=== PATIENT | male | born 1950 | race Caucasian/White ===

== ENCOUNTER 2018-10-31 13:22 | Inpatient (IN) | payer OTHER ==
[2018-10-31 16:27] VITALS: BMI 29.7
--- NOTE | 2018-10-31 18:00 | HP ---
COWS - Scale Resting Pulse: 1= [place] 81-100 Sweatin= Chills/Flushing Restless Observation: 3= Extraneous Movement Pupil Size: 1= Pupils >than Normal Bone or Joint Aches: 2= Severe Diffuse Aches Runny Nose/ Eye Tearin= Nasal Congestion GI Upset > 30mins: 1= Stomach Cramp Tremor Observation: 1= Tremor [place], Not Seen Yawning Observation: 1= 1-2x During Session Anxiety or Irritability: 1=Feels Anxious/Irritable Goose Flesh Skin: 0=Smooth Skin COWS Score: 13 CIWA Score - Admission Criteria OASAS Guidelines: Admission for Medically Managed Detox: Requires at least one of the followin. CIWA greater than 12 2. Seizures within the past 24 hours 3. Delirium tremens within the past 24 hours 4. Hallucinations within the past 24 hours 5. Acute intervention needed for co occurring medical disorder 6. Acute intervention needed for co occurring psychiatric disorder 7. Severe withdrawal that cannot be handled at a lower level of care (continued vomiting, continued diarrhea, abnormal vital signs) requiring intravenous medication and/or fluids 8. Admission ROS S - HPI Chief Complaint: detox from heroin, MJ 68 yo with h/o cancer, says he was getting pain medications- oxycontin (60mg/day ) and this was stopped after he refused back operation, and he started with inhaling heroin about 6 months ago because gabapentin did not help with pain. Pt [facility] the [place] and was referred here for detox. heroin- $10/day, 1- 2 bags day- says he uses this all day long to prevent withdrawal Sx MJ- "a lot" PMH- kidney cancer- had partial nephrectomy, diabetes, asthma, chronic sinus, anxiety, panic attacks. PCP: Dr. Baker at [facility]. DUR- xanax #90, 1mg 6/6- d/w pt that we do will not be able to give him xanax- pt understood and agreed to prn Klonopin dosing Utox: THC, met, opi, BZO Allergies/Adverse Reactions: Allergies Allergy/AdvReac Type Severity Reaction Status Date / Time tetracycline Allergy Severe Verified 10/31/18 16:07 cefaclor [From Ceclor] Allergy Itching Verified 10/31/18 16:08 ciprofloxacin [From Cipro] Allergy Rash Verified 10/31/18 16:08 - Ebola screening Have you traveled outside of the country in the last 21 days: No Have you had contact with anyone from an Ebola affected area: No Do you have a fever: No - Review of Systems Constitutional: No Symptoms Reported, Other (says he has pain all over body from cancer) EENT: reports: No Symptoms Reported Respiratory: reports: Cough Cardiac: reports: Chest Pain GI: reports: Other (says he has pain everyday all over body from cancer) : reports: No Symptoms Reported Musculoskeletal: reports: No Symptoms Reported Neuro: reports: No Symptoms reported Endocrine: reports: No Symptoms Reported Hematology: reports: No Symptoms Reported Patient History - Patient Medical History Hx Asthma: Yes Hx Hypertension: Yes Hx Diabetes: Yes (diet controlled) Hx Thyroid Disease: Yes Other Medical History: cancer all over body - Patient Surgical History Hx Genitourinary Surgery: Yes (nephrectomy for cancer) - PPD History Documented Results: Positive w/o proof Implanted On Prior [facility] Admission?: No - Smoking Cessation Smoking history: Never smoked - Substances abused Heroin Substance route: Inhalation Frequency: Daily Amount used: 1 BAG Age of first use: 68 Date of last use: 10/30/18 Marijuana/Hashish Frequency: Daily Amount used: 6 JOINTS A DAY Age of first use: 23 Date of last use: 10/30/18 Admission Physical Exam S - Vital Signs Vital Signs: Vital Signs - 24 hr 10/31/18 10/31/18 16:20 17:34 Temperature 97.7 F 97.7 F Pulse Rate 60 60 Respiratory 16 16 Rate Blood Pressure 131/75 131/75 - Physical General Appearance: Yes: Mild Distress, Irritable HEENTM: Yes: Within Normal Limits, Other (dentures) Respiratory: Yes: Within Normal Limits, Lungs Clear Neck: Yes: Within Normal Limits, No masses,lesions,Nodules Cardiology: Yes: Within Normal Limits, Regular Rhythm, Regular Rate Abdominal: Yes: Soft, Tenderness (all over abdomen, no rebound, pt states this is chronic pain for several years- 15,), Other (with midline abdominal hernia a ) Musculoskeletal: Yes: Within Normal Limits Extremities: Yes: Within Normal Limits, Other Neurological: Yes: Within Normal Limits Integumentary: Yes: Within Normal Limits Lymphatic: Yes: Within Normal Limits - Diagnostic (1) Heroin use disorder, mild, abuse Current Visit: Yes Status: Acute (2) Cannabis use disorder, mild, abuse Current Visit: Yes Status: Acute (3) Diabetes Current Visit: Yes Status: Acute (4) Hypertension Current Visit: Yes Status: Acute (5) Cancer Current Visit: Yes Status: Acute (6) Anxiety Current Visit: Yes Status: Acute Breathalyzer - Breathalyzer Breathalyzer: 0 Urine Drug Screen - Test Device Lot number: [id number] Expiration date: 06/30/20 - Control Is test valid?: Yes - Results Drug screen NEGATIVE: No Urine drug screen results: THC-Marijuana, MET-Methamphetamine, MOP-Opiates, BZO- Benzodiazepines Inpatient Rehab Admission - Rehab Decision to Admit Inpatient rehab admission?: No
[2018-10-31] MEDS ORDERED: IBUPROFEN 400 MG TABLET (FP) PO PRN (18:13)
[2018-10-31] MEDS ORDERED: ACETAMINOPHEN 325 MG TABLET (FP) PO PRN ×2 (18:13)
[2018-10-31] MEDS ORDERED: MELATONIN 5 MG TABLETS PO PRN (18:13)
[2018-10-31] MEDS ORDERED: MENTHOL/PHENOL 1 EACH UD MM PRN (18:13)
[2018-10-31] MEDS ORDERED: BISMUTH SUBSALICYLATE 524 MG/30 ML UD PO PRN (18:13)
[2018-10-31] MEDS ORDERED: MAGNESIUM CITRATE 300 ML BOTTLE PO PRN (18:13)
[2018-10-31] MEDS ORDERED: hydrOXYzine PAMOATE 25 MG CAPSULE (FP) PO PRN (18:13)
[2018-10-31] MEDS ORDERED: METHOCARBAMOL 500 MG TABLET PO PRN (18:13)
[2018-10-31] MEDS ORDERED: MAG HYDROX/AL HYDROX/SIMETH 30 ML UNIT-DOSE CUP PO PRN (18:13)
[2018-10-31] MEDS ORDERED: MAGNESIUM HYDROX 2400MG/30ML ORAL SUSPENSION 30 ML CUP PO PRN (18:13)
[2018-10-31] MEDS ORDERED: METHADONE HCL 10 MG TABLET (FOR DETOX USE ONLY) PO ONE (18:32)
[2018-10-31] MEDS ORDERED: NALOXONE HCL 0.4 MG/ML VIAL IVPUSH PRN (18:32)
[2018-10-31] MEDS ORDERED: ALBUTEROL SO4 8 GM HFA INHALER IH PRN (18:33)
[2018-10-31] MEDS: cloNIDine HCL 0.1 MG TABLET PO PRN (22:28)
[2018-10-31] MEDS: THIAMINE HCL 100 MG TABLET (FP) PO SCH (22:28)
[2018-10-31] MEDS: clonazePAM 0.5 MG TABLET PO PRN (22:28)
--- NOTE | 2018-11-01 09:46 | CONSULT ---
[facility] Psychiatric Consult - Data Date of interview: 11/01/18 Admission source: [facility] Identifying data: Mr Sosa is a 68 years old male, father of at least 4 children, retired from osher at [employer], domiciled seeking detox treatment opioid and cannabis. Substance Abuse History: Reports history of heroin and marijuana use. Refer to addiction counselor's summary for further information Medical History: Significant for bronchial asthma, hypertension, type 2 diabetes mellitus, hypothyroidism, PPD+, kidney cancer with metastasis to abdomen, history of partial nephrectomy. Psychiatric History: Reports that he has been receiving psychiatric treatment for over 30 years. Claims that he was diagnosed with depression, anxiety, bipolar. He said that over the years, he received outpatient psychiatric treatment at [facility] and [facility] in [facility]. For the past 2 years, he has beeing seeing a private psychiatrist at [facility]. He is currently prescribed Cymbalta 60 mg/day & 30 mg/pm and Xanax 1 mg/ tid. Denies previous psychiatric hospitalization or suicidal attempt. At present , denies experiencing psychotic, manic symptoms, S/H ideations. However, reports feeling depressed, irritable and sleeping poorly Physical/Sexual Abuse/Trauma History: Denies history of emotional, physical or sexual abuse as well as DV relationship. No service Additional Comment: Reports history of multiple previous arrests including 2 felony convictions. Denies being on parole/probation at present Mental Status Exam - Mental Status Exam Cognitive Function: Fair Patient Appearance: Disheveled Mood: Depressed, Irritable Affect: Appropriate Patient Behavior: Cooperative Speech Pattern: Clear Voice Loudness: Normal Thought Process: Intact, Goal Oriented Hallucinations: Denies Suicidal Ideation: Denies Homicidal Ideation: Denies Insight/Judgement: Poor Sleep: Poorly Appetite: Good Muscle strength/Tone: Normal Gait/Station: Normal Psychiatric Findings - Problem List ([place] 1, 2,3) (1) MDD (major depressive disorder) Current Visit: Yes Status: Chronic (2) Bipolar II disorder Current Visit: Yes Status: Ruled-out (3) Opioid dependence, uncomplicated Current Visit: Yes Status: Acute (4) Cannabis dependence Current Visit: Yes Status: Acute (5) Hypertension Current Visit: Yes Status: Chronic (6) Bronchial asthma Current Visit: Yes Status: Chronic (7) Type 2 diabetes mellitus Current Visit: Yes Status: Chronic (8) Kidney cancer, primary, with metastasis from kidney to other site Current Visit: Yes Status: Chronic - Initial Treatment Plan Initial Treatment Plan: 1) Continue Cymbalta 60 mg/day and 30 mg/pm. 2) Continue inpatient detoxification
[2018-11-01 09:57] LABS: HEMATOCRIT 44.4 % (35.4-49); HEMOGLOBIN 14.6 GM/dL (11.7-16.9); MCH 30.8 pg (25.7-33.7); MEAN CELL VOLUME 93.6 fl (80-96); MEAN PLT VOLUME 9.6 fl (7.5-11.1); PLATELET COUNT 252 K/MM3 (134-434); RBC 4.75 M/mm3 (4.00-5.60); RDW 16.6 % (11.9-15.9); WHITE BLOOD COUNT 12.9 K/mm3 (4.0-10.0)
[2018-11-01] MEDS ORDERED: METHADONE HCL 5 MG TABLET (FOR DETOX USE ONLY) PO ONE (10:00)
[2018-11-01 10:02] LABS: ALBUMIN 3.7 g/dl (3.4-5.0); BILIRUBIN,TOTAL 0.4 mg/dL (0.2-1); BLOOD UREA NITROGEN 10.2 mg/dL (7-18); CALCIUM 9.1 mg/dL (8.5-10.1); CREATININE 0.8 mg/dL (0.55-1.3); POTASSIUM 3.9 mmol/L (3.5-5.1); TOT PROT 7.6 g/dl (6.4-8.2)
[2018-11-01] MEDS: LOSARTAN POTASSIUM 50 MG TABLET (FP) PO SCH (10:23)
[2018-11-01] MEDS: PRENATAL VITAMINS W/ FOLIC ACID TABLET (FP) PO SCH (10:23)
[2018-11-01] MEDS: clonazePAM 0.5 MG TABLET PO PRN (10:28)
--- NOTE | 2018-11-01 10:56 | PN ---
S COWS - Scale Resting Pulse: 0= [place] 80 or Below Sweatin= Chills/Flushing Restless Observation: 1= Difficult to Sit Still Pupil Size: 1= Pupils >than Normal Bone or Joint Aches: 2= Severe Diffuse Aches Runny Nose/ Eye Tearin= Nasal Congestion GI Upset > 30mins: 1= Stomach Cramp Tremor Observation of Outstretched Hands: 1= Tremor [place], Not Seen Yawning Observation: 1= 1-2x During Session Anxiety or Irritability: 2=Irritable/Anxious Goose Flesh Skin: 0=Smooth Skin COWS Score: 11 S Progress Note (SOAP) Subjective: alert,irritable,anxious,interrupted sleep,pain in the back and body Objective: 11/01/18 10:53 Vital Signs Temperature 97.7 F 11/01/18 09:18 Pulse Rate 50 L 11/01/18 09:18 Respiratory Rate 20 11/01/18 09:18 Blood Pressure 144/70 11/01/18 09:18 O2 Sat by Pulse Oximetry (%) Laboratory Last Values WBC 12.9 K/mm3 (4.0-10.0) H 11/01/18 06:30 RBC 4.75 M/mm3 (4.00-5.60) 11/01/18 06:30 Hgb 14.6 GM/dL (11.7-16.9) 11/01/18 06:30 Hct 44.4 % (35.4-49) 11/01/18 06:30 MCV 93.6 fl (80-96) 11/01/18 06:30 MCH 30.8 pg (25.7-33.7) 11/01/18 06:30 MCHC 33.0 g/dl (32.0-35.9) 11/01/18 06:30 RDW 16.6 % (11.9-15.9) H 11/01/18 06:30 Plt Count 252 K/MM3 (134-434) 11/01/18 06:30 MPV 9.6 fl (7.5-11.1) 11/01/18 06:30 Sodium 142 mmol/L (136-145) 11/01/18 06:30 Potassium 3.9 mmol/L (3.5-5.1) 11/01/18 06:30 Chloride 106 mmol/L (98-107) 11/01/18 06:30 Carbon Dioxide 29 mmol/L (21-32) 11/01/18 06:30 Anion Gap 7 MMOL/L (8-16) L 11/01/18 06:30 BUN 10.2 mg/dL (7-18) 11/01/18 06:30 Creatinine 0.8 mg/dL (0.55-1.3) 11/01/18 06:30 Est GFR (CKD-EPI)AfAm 106.38 11/01/18 06:30 Est GFR (CKD-EPI)NonAf 91.79 11/01/18 06:30 Random Glucose 131 mg/dL (74-106) H 11/01/18 06:30 Calcium 9.1 mg/dL (8.5-10.1) 11/01/18 06:30 Total Bilirubin 0.4 mg/dL (0.2-1) 11/01/18 06:30 AST 13 U/L (15-37) L 11/01/18 06:30 ALT 21 U/L (13-61) 11/01/18 06:30 Alkaline Phosphatase 108 U/L (45-117) 11/01/18 06:30 Total Protein 7.6 g/dl (6.4-8.2) 11/01/18 06:30 Albumin 3.7 g/dl (3.4-5.0) 11/01/18 06:30 11/01/18 10:54 rpr pending Assessment: 11/01/18 10:55 withdrawal symptom Plan: continue detox,wbc 12.900,glucose 131,encourage oral fluid,repeat cbc in am,bgm monitoring
[2018-11-01] MEDS: DULoxetine HCL 60 MG CAPSULE.DR PO SCH (11:05)
[2018-11-01] MEDS ORDERED: DULoxetine HCL 30 MG CAPSULE.DR PO SCH (17:00)
[2018-11-01] MEDS: cloNIDine HCL 0.1 MG TABLET PO PRN (17:58)
[2018-11-01] MEDS: THIAMINE HCL 100 MG TABLET (FP) PO SCH (22:14)
[2018-11-02] MEDS: clonazePAM 0.5 MG TABLET PO PRN (06:26)
[2018-11-02] MEDS ORDERED: METHADONE HCL 10 MG TABLET (FOR DETOX USE ONLY) PO ONE (10:00)
[2018-11-02 10:12] LABS: HEMATOCRIT 42.7 % (35.4-49); HEMOGLOBIN 14.3 GM/dL (11.7-16.9); MCH 31.1 pg (25.7-33.7); MCHC 33.4 g/dl (32.0-35.9); MEAN CELL VOLUME 93.2 fl (80-96); MEAN PLT VOLUME 9.2 fl (7.5-11.1); PLATELET COUNT 245 K/MM3 (134-434); RBC 4.58 M/mm3 (4.00-5.60); RDW 16.4 % (11.9-15.9); WHITE BLOOD COUNT 10.7 K/mm3 (4.0-10.0)
[2018-11-02] MEDS: DULoxetine HCL 60 MG CAPSULE.DR PO SCH (10:13)
[2018-11-02] MEDS: LOSARTAN POTASSIUM 50 MG TABLET (FP) PO SCH (10:13)
[2018-11-02] MEDS: PRENATAL VITAMINS W/ FOLIC ACID TABLET (FP) PO SCH (10:13)
--- NOTE | 2018-11-02 10:38 | PN ---
[facility] COWS - Scale Resting Pulse: 0= [place] 80 or Below Sweatin= Chills/Flushing Restless Observation: 0= Sits Still Pupil Size: 0= Normal to Room Light Bone or Joint Aches: 4=Acute Joint/Muscle Pain Runny Nose/ Eye Tearin= Nasal Congestion GI Upset > 30mins: 0= None Tremor Observation of Outstretched Hands: 1= Tremor [employer], Not Seen Yawning Observation: 1= 1-2x During Session Anxiety or Irritability: 2=Irritable/Anxious Goose Flesh Skin: 0=Smooth Skin COWS Score: 10 BHS Progress Note (SOAP) Subjective: ANXIETY, GENERALIZED PAIN. PT REPORTS HE IS ON SYNTHROID FOR HX HYPOTHYROIDISM, TIZANIDINE 4 MG 3X A DAY FOR MUSCLE SPASMS, SINGULAIR FOR ASTHMA AND REPORTS SOB ON/OF. ALSO REPORTS HE HAS A HX OF "HEAD SPINNING" AND WAS GIVEN ATIVERT FOR IT. REQUESTING TO GET BACK ON HIS MEDS BECAUSE "I BROUGHT MY MEDICINES". PT WAS ADMITTED ON 10/31/18 TO DETOX. CHECKED ON PT'S OUTSIDE PHARMACY -[facility] WITH LAST POST ON 10/19/18. TIZANIDINE 4 MG PO TID LEVOTHYROXIN 150 MCG PO DAILY LOSARTAN 100 MG PO DAILY MONTELUKAST 10 MG PO DAILY TAMSULOSIN 0.4 MG PO DAILY VALACYCLOVIR 1 GM PO DAILY Objective: 11/02/18 10:38 Vital Signs 11/02/18 11/02/18 11/02/18 03:30 07:39 09:23 Temperature 97.9 F 98.9 F Pulse Rate 54 L 75 Respiratory 18 18 19 Rate Blood Pressure 150/81 161/91 Laboratory Tests 11/01/18 11/01/18 11/01/18 06:30 06:30 06:30 WBC 12.9 H RBC 4.75 Hgb 14.6 Hct 44.4 MCV 93.6 MCH 30.8 MCHC 33.0 RDW 16.6 H Plt Count 252 MPV 9.6 Sodium 142 Potassium 3.9 Chloride 106 Carbon Dioxide 29 Anion Gap 7 L BUN 10.2 Creatinine 0.8 Est GFR (CKD-EPI)AfAm 106.38 Est GFR (CKD-EPI)NonAf 91.79 POC Glucometer Random Glucose 131 H Calcium 9.1 Total Bilirubin 0.4 AST 13 L ALT 21 Alkaline Phosphatase 108 Total Protein 7.6 Albumin 3.7 RPR Titer Nonreactive 11/02/18 11/02/18 06:24 07:50 WBC 10.7 H RBC 4.58 Hgb 14.3 Hct 42.7 MCV 93.2 MCH 31.1 MCHC 33.4 RDW 16.4 H Plt Count 245 MPV 9.2 Sodium Potassium Chloride Carbon Dioxide Anion Gap BUN Creatinine Est GFR (CKD-EPI)AfAm Est GFR (CKD-EPI)NonAf POC Glucometer 116 Random Glucose Calcium Total Bilirubin AST ALT Alkaline Phosphatase Total Protein Albumin RPR Titer Assessment: 11/02/18 10:50 WITHDRAWAL SX Plan: CONTINUE DETOX NURSE TO ASSIST PT OBTAIN MEDS FROM [facility]. THEN CONFIRM HOME MEDS WITH PATIENT TAKE HOME MEDS TO PHARMACY FOR VERIFICATION AND CLEARANCE. REORDER MEDS DEEM APPROPRIATE.
[2018-11-02 13:06] VITALS: BP 177/78; PULSE 60; TEMP 97
--- NOTE | 2018-11-02 15:37 | DS ---
[facility] Detox Discharge Summary Admission Date: 10/31/18 Discharge Date: 11/02/18 - History Present History: Cannabis Dependence, Opioid Dependence Additional Comments: PT DECLINED TO CONTINUE WITH TREATMENT STATING HE IS GOING BACK TO WORK. ALL EFFORTS TO ENCOURAGE PT TO STAY FAILED. ALERT O X 3. DENIES S/H/I. PT REPORTS HE HAS A PRIMARY CARE PROVIDER, DR. SINGH AND PT HAS BEEN ENCOURAGED TO FOLLOW UP WITH MEDICAL MANAGEMENT. Pertinent Past History: PLEASE SEE DX BELOW - Physical Exam Results Vital Signs: Vital Signs Temperature 97.0 F L 11/02/18 13:00 Pulse Rate 60 11/02/18 13:00 Respiratory Rate 20 11/02/18 13:00 Blood Pressure 177/78 H 11/02/18 13:00 O2 Sat by Pulse Oximetry (%) Pertinent Admission Physical Exam Findings: WITHDRAWAL SX Laboratory Tests 11/01/18 11/01/18 11/01/18 06:30 06:30 06:30 WBC 12.9 H RBC 4.75 Hgb 14.6 Hct 44.4 MCV 93.6 MCH 30.8 MCHC 33.0 RDW 16.6 H Plt Count 252 MPV 9.6 Sodium 142 Potassium 3.9 Chloride 106 Carbon Dioxide 29 Anion Gap 7 L BUN 10.2 Creatinine 0.8 Est GFR (CKD-EPI)AfAm 106.38 Est GFR (CKD-EPI)NonAf 91.79 POC Glucometer Random Glucose 131 H Calcium 9.1 Total Bilirubin 0.4 AST 13 L ALT 21 Alkaline Phosphatase 108 Total Protein 7.6 Albumin 3.7 RPR Titer Nonreactive 11/02/18 11/02/18 06:24 07:50 WBC 10.7 H RBC 4.58 Hgb 14.3 Hct 42.7 MCV 93.2 MCH 31.1 MCHC 33.4 RDW 16.4 H Plt Count 245 MPV 9.2 Sodium Potassium Chloride Carbon Dioxide Anion Gap BUN Creatinine Est GFR (CKD-EPI)AfAm Est GFR (CKD-EPI)NonAf POC Glucometer 116 Random Glucose Calcium Total Bilirubin AST ALT Alkaline Phosphatase Total Protein Albumin RPR Titer - Treatment Hospital Course: Discharged Condition Good - Medication Discharge Medications: Ambulatory Orders Cymbalta BID 10/31/18 Losartan Potassium 10/31/18 Ventolin HFA Inhaler - 10/31/18 Xanax TID 10/31/18 - Diagnosis (1) Cannabis dependence Status: Acute (2) Bronchial asthma Status: Chronic Qualifiers: Asthma severity: mild Asthma persistence: unspecified Asthma complication type: unspecified Qualified Code(s): J45.909 - Unspecified asthma , uncomplicated (3) Hypertension Status: Chronic Qualifiers: Hypertension type: essential hypertension Qualified Code(s): I10 - Essential (primary) hypertension (4) Type 2 diabetes mellitus Status: Chronic (5) Opioid dependence, uncomplicated Status: Chronic (6) BPH (benign prostatic hyperplasia) Status: Chronic Qualifiers: Lower urinary tract symptom detail: unspecified (7) Hypothyroidism Status: Chronic Qualifiers: Hypothyroidism type: unspecified Qualified Code(s): E03.9 - Hypothyroidism , unspecified - AMA Did Patient Leave Against Medical Advice: Yes (AMA)
[2018-11-03] MEDS ORDERED: METHADONE HCL 5 MG TABLET (FOR DETOX USE ONLY) PO ONE (06:00)
--- NOTE | 2018-11-03 10:41 | EKG ---
Test Reason : Blood Pressure : / mmHG Vent. Rate : 050 BPM Atrial Rate : 050 BPM P-R Int : 174 ms QRS Dur : 094 ms QT Int : 448 ms P-R-T Axes : 048 -18 016 degrees QTc Int : 408 ms SINUS BRADYCARDIA LEFTWARD AXIS MINIMAL VOLTAGE CRITERIA FOR LVH, MAY BE NORMAL VARIANT NO PREVIOUS ECGS AVAILABLE Confirmed by ESTELLE MENEZES MD ([id number]) on 11/03/2018 10:40:58 AM Referred By: Confirmed By:ESTELLE MENEZES MD
== END 2018-11-02 13:03 | disposition left against medical advice (07) | DRG 894 ==
LOC: YASAS 13:22 → Y6N 18:20
PROVIDERS: ADMIT Surgery; ATTEND Surgery
PROC: HZ2ZZZZ Detoxification Services for Substance Abuse Treatment (ICD-10-PCS; principal; 2018-10-31)
DX: F11.23 Opioid dependence with withdrawal (principal); F13.20 Sedative, hypnotic or anxiolytic dependence, uncomplicated; F31.81 Bipolar II disorder; C64.9 Malignant neoplasm of unspecified kidney, except renal pelvis; C79.89 Secondary malignant neoplasm of other specified sites; F12.20 Cannabis dependence, uncomplicated; F32.9 Major depressive disorder, single episode, unspecified; F41.8 Other specified anxiety disorders; F41.0 Panic disorder [episodic paroxysmal anxiety]; I10 Essential (primary) hypertension; E11.9 Type 2 diabetes mellitus without complications; J45.909 Unspecified asthma, uncomplicated; N40.0 Benign prostatic hyperplasia without lower urinary tract symptoms; Z90.5 Acquired absence of kidney
CPT/HCPCS: 36415; 80053; 82962; 85027; 86593; 93005; 93010; J0735

== ENCOUNTER 2018-12-19 09:48 | Inpatient (IN) | payer OTHER ==
[2018-12-19 11:48] VITALS: BMI 30.8
--- NOTE | 2018-12-19 12:43 | HP ---
COWS - Scale Resting Pulse: 0= [place] 80 or Below Sweatin= Chills/Flushing Restless Observation: 3= Extraneous Movement Pupil Size: 1= Pupils >than Normal Bone or Joint Aches: 2= Severe Diffuse Aches Runny Nose/ Eye Tearin= Nasal Congestion GI Upset > 30mins: 1= Stomach Cramp Tremor Observation: 2= Slight Tremor Visible Yawning Observation: 0= None Anxiety or Irritability: 2=Irritable/Anxious Goose Flesh Skin: 0=Smooth Skin COWS Score: 13 CIWA Score - Admission Criteria OAS Guidelines: Admission for Medically Managed Detox: Requires at least one of the followin. CIWA greater than 12 2. Seizures within the past 24 hours 3. Delirium tremens within the past 24 hours 4. Hallucinations within the past 24 hours 5. Acute intervention needed for co occurring medical disorder 6. Acute intervention needed for co occurring psychiatric disorder 7. Severe withdrawal that cannot be handled at a lower level of care (continued vomiting, continued diarrhea, abnormal vital signs) requiring intravenous medication and/or fluids 8. Admission ROS [facility] Chief Complaint: detox from heroin Allergies/Adverse Reactions: Allergies Allergy/AdvReac Type Severity Reaction Status Date / Time cephalexin [From Keflex] Allergy Severe Difficulty Verified 12/19/18 11:29 Breathing tetracycline Allergy Severe Verified 12/19/18 11:29 cefaclor [From Ceclor] Allergy Itching Verified 12/19/18 11:29 ciprofloxacin [From Cipro] Allergy Rash Verified 12/19/18 11:29 History of Present Illness: Mr. Sosa is a 68yo male with opioid use disorder, marijuana use disorder, HTN , anxiety, depression, kidney CA who presents for detox from heroin use. He reports using 1-2 bags/daily by sniffing. He denies hx of OD. He was admitted here on 10/31/18 for detox and left AMA on 11/02/18 because he needed to pay rent because he was afraid to lose his apartment. He initially began using after being given prescription Oxycontin for back pain. He also smokes 5 joints of marijuana daily for 43 years. He denies ETOH and tobacco use. He takes prescription Xanax 1mg TID PRN anxiety and reports taking prescribed amount. He reports BELLAMY, ear pain, nasal congestion, abdominal pain, loss of appetite, agitation, and anxiety. He denies dizziness, n/v/d, chest pain, SOB. He attributes a recent increase in BELLAMY, ear pain, and nasal congestion because of "what they add in the heroin." He also has been having increased abdominal pain and back pain that he is concerned is his cancer returning. He had a partial nephrectomy, and he now thinks the cancer has spread to his prostate. He denies telling his PCP about it. He plans to see a specialist following detox. PMH: opioid use disorder, marijuana use disorder, HTN, anxiety, depression, kidney CA surgical hx: right partial nephrectomy meds: lisinopril, hydralazine, tamsulosin, xanax, cymbalta, loratidine, singulair, meclizine, levothyroxine social hx: lives alone in [place], retired since age 50 - Ebola screening Have you traveled outside of the country in the last 21 days: No Have you had contact with anyone from an Ebola affected area: No - Review of Systems Constitutional: Loss of Appetite EENT: reports: Ear Pain, Nose Congestion Respiratory: denies: Shortness of Breath Cardiac: denies: Chest Pain GI: reports: Other (abdominal pain). denies: Diarrhea, Nausea, Vomiting : reports: No Symptoms Reported Musculoskeletal: reports: Back Pain Integumentary: reports: No Symptoms Reported Neuro: reports: Headache. denies: Paresthesia, Dizziness Endocrine: reports: No Symptoms Reported Hematology: reports: No Symptoms Reported Psychiatric: reports: Judgement Intact, Mood/Affect Appropiate, Orientated x3 Patient History - Patient Medical History Hx Asthma: Yes Hx Chronic Obstructive Pulmonary Disease (COPD): No Hx Cardiac Disorders: No Hx Hypertension: Yes Hx Seizures: No Hx Diabetes: Yes (diet controlled) Hx Gastrointestinal Disorders: Yes (Lung and Stomach cancer) Hx Genitourinary Disorders: No Hx Sexually Transmitted Disorders: No Hx Renal Disease (ESRD): No Hx Thyroid Disease: Yes Hx Depression: Yes Hx Suicide Attempt: No Hx Schizophrenia: No - Patient Surgical History Past Surgical History: Yes Hx Neurologic Surgery: No Hx Cataract Extraction: No Hx Cardiac Surgery: No Hx Lung Surgery: No Hx Breast Surgery: No Hx Breast Biopsy: No Hx Abdominal Surgery: No Hx Appendectomy: No Hx Cholecystectomy: No Hx Genitourinary Surgery: Yes (nephrectomy for cancer) Hx Section: No Hx Orthopedic Surgery: No Anesthesia Reaction: No - Smoking Cessation Smoking history: Never smoked Have you smoked in the past 12 months: Yes Hx Chewing Tobacco Use: No - Substances abused Heroin Substance route: Inhalation Frequency: Daily Amount used: 1 BAG Age of first use: 62 Date of last use: 12/19/18 Marijuana/Hashish Frequency: Daily Amount used: 5 JOINTS A DAY Age of first use: 23 Date of last use: 12/18/18 Family Disease History - Family Disease History Family History: Denies Admission Physical Exam [facility] - Vital Signs Vital Signs: Vital Signs - 24 hr 12/19/18 11:44 Temperature 97.6 F Pulse Rate 54 L Respiratory 20 Rate Blood Pressure 129/76 - Physical General Appearance: Yes: No Apparent Distress HEENTM: Yes: Hearing grossly Normal, Normocephalic, DAVE Respiratory: Yes: Normal Breath Sounds, No Respiratory Distress Neck: Yes: Within Normal Limits Cardiology: Yes: Regular Rhythm, Bradycardia. No: Murmur Abdominal: Yes: Normal Bowel Sounds, Protuberent, Tenderness Back: Yes: CVA Tenderness (R) Musculoskeletal: Yes: full range of Motion Extremities: Yes: Normal Range of Motion Neurological: Yes: hand model II-XII NML intact, Fully Oriented, Alert, Motor Strength 5/5, Normal Mood/Affect Integumentary: Yes: Within Normal Limits - Diagnostic (1) Seasonal allergies Current Visit: Yes Status: Chronic (2) Anxiety Current Visit: Yes Status: Chronic (3) Cannabis use disorder, mild, abuse Current Visit: Yes Status: Chronic (4) Heroin use disorder, mild, abuse Current Visit: Yes Status: Chronic (5) BPH (benign prostatic hyperplasia) Current Visit: Yes Status: Chronic Qualifiers: Lower urinary tract symptom detail: unspecified (6) Hypertension Current Visit: Yes Status: Chronic Qualifiers: Hypertension type: essential hypertension Qualified Code(s): I10 - Essential (primary) hypertension (7) Hypothyroidism Current Visit: Yes Status: Chronic Qualifiers: Hypothyroidism type: unspecified Qualified Code(s): E03.9 - Hypothyroidism , unspecified (8) Kidney cancer, primary, with metastasis from kidney to other site Current Visit: Yes Status: Chronic Qualifiers: Laterality: right Qualified Code(s): C64.1 - Malignant neoplasm of right kidney, except renal pelvis (9) MDD (major depressive disorder) Current Visit: Yes Status: Chronic Cleared for Admission S - Detox or Rehab [facility] Level of Care: Medically Managed Breathalyzer - Breathalyzer Breathalyzer: 0 Urine Drug Screen - Test Device Lot number: [id number] Expiration date: 09/30/20 - Control Is test valid?: Yes - Results Drug screen NEGATIVE: No Urine drug screen results: THC-Marijuana, MOP-Opiates, BZO-Benzodiazepines Inpatient Rehab Admission - Rehab Decision to Admit Inpatient rehab admission?: No
[2018-12-19] MEDS ORDERED: IBUPROFEN 400 MG TABLET (FP) PO PRN (13:37)
[2018-12-19] MEDS ORDERED: hydrOXYzine PAMOATE 25 MG CAPSULE (FP) PO PRN (13:37)
[2018-12-19] MEDS ORDERED: MAGNESIUM HYDROX 2400MG/30ML ORAL SUSPENSION 30 ML CUP PO PRN (13:37)
[2018-12-19] MEDS ORDERED: cloNIDine HCL 0.1 MG TABLET PO PRN (13:37)
[2018-12-19] MEDS ORDERED: MENTHOL/PHENOL 1 EACH UD MM PRN (13:37)
[2018-12-19] MEDS ORDERED: MAGNESIUM CITRATE 300 ML BOTTLE PO PRN (13:37)
[2018-12-19] MEDS ORDERED: MAG HYDROX/AL HYDROX/SIMETH 30 ML UNIT-DOSE CUP PO PRN (13:37)
[2018-12-19] MEDS ORDERED: ACETAMINOPHEN 325 MG TABLET (FP) PO PRN ×2 (13:37)
[2018-12-19] MEDS ORDERED: BISMUTH SUBSALICYLATE 262 MG/15 ML BTL PO PRN (13:37)
[2018-12-19] MEDS ORDERED: ALBUTEROL SO4 8 GM HFA INHALER IH PRN (13:40)
[2018-12-19] MEDS ORDERED: TIZANIDINE HCL 4 MG TABLET PO SCH (14:00)
[2018-12-19] MEDS ORDERED: METHADONE HCL 10 MG TABLET (FOR DETOX USE ONLY) PO ONE (14:20)
--- NOTE | 2018-12-19 14:54 | PN ---
Teaching Attending Note Name of Resident: Veronica Rao ATTENDING PHYSICIAN STATEMENT I saw and evaluated the patient. I reviewed the resident's note and discussed the case with the resident. I agree with the resident's findings and plan as documented. SUBJECTIVE: this 68 years old male with heroin dependence,seeking detox,history of cancer of right kidney,partial nephrectomy, OBJECTIVE: withdrawal signs and symptom Vital Signs Temperature 97.6 F 12/19/18 11:44 Pulse Rate 54 L 12/19/18 11:44 Respiratory Rate 20 12/19/18 11:44 Blood Pressure 129/76 12/19/18 11:44 O2 Sat by Pulse Oximetry (%) ASSESSMENT AND PLAN: this 68 years old male with opiate dependence,need inpatient detox,methadone regimen,medically manage, possible rehab after detox
[2018-12-19] MEDS ORDERED: METHOCARBAMOL 500 MG TABLET PO PRN (15:01)
--- NOTE | 2018-12-19 15:01 | CONSULT ---
[facility] Psychiatric Consult - Data Date of interview: 12/19/18 Admission source: [facility] Identifying data: Readmission to [facility] for this 68 y/o male self- referred for detoxification (heroin, cannabis). Interviewed at [address] [place] [address]. Patient is , a father of four, domiciled, unemployed, a retiree from usher duty at [employer] and supported on his custodial benefits. Substance Abuse History: Confirmed by patient. Details in current [facility] report as follows : Smoking history: Never smoked. Have you smoked in the past 12 months : Yes. Hx Chewing Tobacco Use: No. Substances abused. Heroin. Substance route: Inhalation. Frequency: Daily. Amount used: 1 BAG. Age of first use: 62. Date of last use: 12/19/18. Marijuana/Hashish. Frequency: Daily. Amount used: 5 JOINTS A DAY. Age of first use: 23. Date of last use: 12/18/18 Medical History: Medical profile is remarkable for benign prostatic hyperplasia (BPH), chronic lumbar pain, bronchial asthma, hypertension, non-insulin dependent diabetes mellitus, hypothyroidism, positive PPD, kidney cancer with local metastases and a history of partial nephrectomy (right). Mr Sosa ambulates with a cane. Psychiatric History: Patient presents with a long-standing history of psychiatric treatment (+ 30 years). Mr Sosa, however, denies history of psychiatric hospitalizations. Has been enlisted in OPD care throughout the years. Patient is currently followed at [facility] in the [place]. He sees a psychiatrist, Dr Andrey Perry, for medication management ( duloxetine 60 mg/am + 30 mg/pm and xanax 1 mg/tid). Endorses the diagnosis of MDD. Denies history of suicide attempts. Physical/Sexual Abuse/Trauma History: Patient denies history of abuse. Stressors : estrangement from two sons and one daughter (visited regularly at home by one daughter), loneliness and serious medical illnesses. Additional Comment: Urine drug screen results: THC-Marijuana, MET- Methamphetamine, MOP-Opiates, BZO-Benzodiazepines. Noted. Mental Status Exam - Mental Status Exam Alert and Oriented to: Time, Place, Person Cognitive Function: Good Patient Appearance: Well Groomed Mood: Hopeful Affect: Appropriate, Normal Range Patient Behavior: Fatigued, Appropriate (pleasant, friendly), Cooperative Speech Pattern: Clear, Appropriate Voice Loudness: Normal Thought Process: Intact, Goal Oriented Thought Disorder: Not Present Hallucinations: Denies Suicidal Ideation: Denies Homicidal Ideation: Denies Insight/Judgement: Fair Sleep: Well Appetite: Good Muscle strength/Tone: Normal Gait/Station: Other (moves around with a cane) Psychiatric Findings - Problem List ([place] 1, 2,3) (1) Opioid dependence, uncomplicated Status: Acute (2) Cannabis dependence Status: Chronic (3) MDD (major depressive disorder) Status: Chronic Comment: By history. On medication. - Initial Treatment Plan Initial Treatment Plan: Psychoeducation. Sleep hygiene. Detoxification. Support. Medications are reconciled with the patient. Resumed : duloxetine 60 mg po am + 30 mg po pm. Side effects/benefits discussed with patient. Risk of hypertension revisited with patient. Xanax not resumed (diazepam as substitute for detoxification). Mr Sosa is in agreement with this plan of care (insists on continuing duloxetine). NA meetings. Falls precautions. Observation.
[2018-12-19 16:39] LABS: HEMOGLOBIN 14.1 GM/dL (11.7-16.9); MCH 31.1 pg (25.7-33.7); MCHC 33.4 g/dl (32.0-35.9); MEAN CELL VOLUME 92.9 fl (80-96); MEAN PLT VOLUME 9.4 fl (7.5-11.1); PLATELET COUNT 237 K/MM3 (134-434); RBC 4.52 M/mm3 (4.00-5.60); RDW 15.9 % (11.9-15.9)
[2018-12-19 16:43] LABS: ALBUMIN 3.7 g/dl (3.4-5.0); BILIRUBIN,TOTAL 0.3 mg/dL (0.2-1); BLOOD UREA NITROGEN 17.6 mg/dL (7-18); CALCIUM 9.4 mg/dL (8.5-10.1); POTASSIUM 4.8 mmol/L (3.5-5.1); TOT PROT 7.4 g/dl (6.4-8.2)
[2018-12-19] MEDS: diazePAM 5 MG TABLET PO PRN (19:52)
[2018-12-19] MEDS: THIAMINE HCL 100 MG TABLET (FP) PO SCH (22:10)
[2018-12-19] MEDS: TAMSULOSIN HCL 0.4 MG CAP PO SCH (22:10)
[2018-12-19] MEDS: MELATONIN 5 MG TABLETS PO PRN (22:11)
[2018-12-19] MEDS: hydrALAZINE HCL 25 MG TABLET (FP) PO SCH (23:42)
[2018-12-20] MEDS: LEVOTHYROXINE 50 MCG, LEVOTHYROXINE 100 MCG PO SCH (06:22)
[2018-12-20] MEDS ORDERED: METHADONE HCL 5 MG TABLET (FOR DETOX USE ONLY) PO ONE (10:00)
[2018-12-20] MEDS ORDERED: LEVOTHYROXINE NA 150 MCG TABLET PO SCH (10:00)
[2018-12-20] MEDS: MONTELUKAST NA 10 MG TABLET PO SCH (10:17)
[2018-12-20] MEDS: LISINOPRIL 20 MG TABLET (FP) PO SCH (10:17)
[2018-12-20] MEDS: DULoxetine HCL 60 MG CAPSULE.DR PO SCH (10:17)
[2018-12-20] MEDS: hydrALAZINE HCL 25 MG TABLET (FP) PO SCH ×2 (10:18→21:36)
[2018-12-20] MEDS: PRENATAL VITAMINS W/ FOLIC ACID TABLET (FP) PO SCH (10:18)
[2018-12-20] MEDS ORDERED: BENZOCAINE 28 GM HEMORRHOIDAL OINTMENT PR PRN (15:19)
--- NOTE | 2018-12-20 15:51 | PN ---
S COWS - Scale Resting Pulse: 0= DC 80 or Below Sweatin= Chills/Flushing Restless Observation: 0= Sits Still Pupil Size: 1= Pupils >than Normal Bone or Joint Aches: 1= Mild Discomfort Runny Nose/ Eye Tearin= Nasal Congestion GI Upset > 30mins: 1= Stomach Cramp Tremor Observation of Outstretched Hands: 2= Slight Tremor Visible Yawning Observation: 2= >3x During Session Anxiety or Irritability: 2=Irritable/Anxious Goose Flesh Skin: 0=Smooth Skin COWS Score: 11 [facility] Progress Note (SOAP) Subjective: 68 years old male admitted on 12/19/18 for acute opiate withdrawal sx management doing well with methadone detox regimen reporting that taking xanax 1 mg po tid received monthly prescription last filled 30 days on 12/08/18 long history of hypertension treated with lisinopril 40 mg po daily addiction clonidine 0.1 mg po q6h prn Objective: 12/20/18 15:56 Vital Signs Temperature 98 F 12/20/18 13:03 Pulse Rate 58 L 12/20/18 13:03 Respiratory Rate 18 12/20/18 13:03 Blood Pressure 168/74 12/20/18 13:03 O2 Sat by Pulse Oximetry (%) Laboratory Last Values WBC 12.0 K/mm3 (4.0-10.0) H 12/19/18 14:55 RBC 4.52 M/mm3 (4.00-5.60) 12/19/18 14:55 Hgb 14.1 GM/dL (11.7-16.9) 12/19/18 14:55 Hct 42.0 % (35.4-49) 12/19/18 14:55 MCV 92.9 fl (80-96) 12/19/18 14:55 MCH 31.1 pg (25.7-33.7) 12/19/18 14:55 MCHC 33.4 g/dl (32.0-35.9) 12/19/18 14:55 RDW 15.9 % (11.9-15.9) 12/19/18 14:55 Plt Count 237 K/MM3 (134-434) 12/19/18 14:55 MPV 9.4 fl (7.5-11.1) 12/19/18 14:55 Sodium 140 mmol/L (136-145) 12/19/18 14:55 Potassium 4.8 mmol/L (3.5-5.1) 12/19/18 14:55 Chloride 105 mmol/L (98-107) 12/19/18 14:55 Carbon Dioxide 30 mmol/L (21-32) 12/19/18 14:55 Anion Gap 6 MMOL/L (8-16) L 12/19/18 14:55 BUN 17.6 mg/dL (7-18) 12/19/18 14:55 Creatinine 1.0 mg/dL (0.55-1.3) 12/19/18 14:55 Est GFR (CKD-EPI)AfAm 89.23 12/19/18 14:55 Est GFR (CKD-EPI)NonAf 76.99 12/19/18 14:55 Random Glucose 106 mg/dL (74-106) 12/19/18 14:55 Calcium 9.4 mg/dL (8.5-10.1) 12/19/18 14:55 Total Bilirubin 0.3 mg/dL (0.2-1) 12/19/18 14:55 AST 23 U/L (15-37) 12/19/18 14:55 ALT 32 U/L (13-61) 12/19/18 14:55 Alkaline Phosphatase 99 U/L (45-117) 12/19/18 14:55 Total Protein 7.4 g/dl (6.4-8.2) 12/19/18 14:55 Albumin 3.7 g/dl (3.4-5.0) 12/19/18 14:55 RPR Titer Nonreactive (NONREACTIVE) 12/19/18 14:55 HIV 1&2 Antibody Screen Negative 12/19/18 14:55 HIV P24 Antigen Negative 12/19/18 14:55 lab noted Assessment: 12/20/18 15:56 opiate withdrawal sx alert oriented x 3 steady gait no shortness of breath no wheezing Plan: continue methadone detox regimen
[2018-12-20] MEDS: DOCUSATE SODIUM 100 MG CAPSULE (FP) PO SCH ×2 (17:00→21:36)
[2018-12-20] MEDS: cloNIDine HCL 0.1 MG TABLET PO PRN ×2 (17:01→21:36)
[2018-12-20] MEDS: diazePAM 5 MG TABLET PO PRN ×2 (17:03→21:37)
[2018-12-20] MEDS ORDERED: DULoxetine HCL 30 MG CAPSULE.DR PO SCH (21:00)
[2018-12-20] MEDS: TAMSULOSIN HCL 0.4 MG CAP PO SCH (21:36)
[2018-12-20] MEDS: THIAMINE HCL 100 MG TABLET (FP) PO SCH (21:36)
[2018-12-21] MEDS ORDERED: LEVOTHYROXINE NA 100 MCG TABLET (FP) ONE (05:06)
[2018-12-21] MEDS ORDERED: LEVOTHYROXINE NA 25 MCG TABLET (FP) ONE (05:06)
[2018-12-21] MEDS: DOCUSATE SODIUM 100 MG CAPSULE (FP) PO SCH ×3 (05:44→22:08)
[2018-12-21] MEDS: LEVOTHYROXINE 50 MCG, LEVOTHYROXINE 100 MCG PO SCH (07:41)
[2018-12-21] MEDS ORDERED: METHADONE HCL 10 MG TABLET (FOR DETOX USE ONLY) PO ONE (10:00)
[2018-12-21] MEDS: PRENATAL VITAMINS W/ FOLIC ACID TABLET (FP) PO SCH (10:09)
[2018-12-21] MEDS: MONTELUKAST NA 10 MG TABLET PO SCH (10:09)
[2018-12-21] MEDS: LISINOPRIL 20 MG TABLET (FP) PO SCH (10:09)
[2018-12-21] MEDS: diazePAM 5 MG TABLET PO PRN ×3 (10:09→22:08)
[2018-12-21] MEDS: hydrALAZINE HCL 25 MG TABLET (FP) PO SCH ×2 (10:10→22:08)
[2018-12-21] MEDS: DULoxetine HCL 60 MG CAPSULE.DR PO SCH (10:10)
--- NOTE | 2018-12-21 10:19 | EKG ---
Test Reason : Blood Pressure : / mmHG Vent. Rate : 051 BPM Atrial Rate : 051 BPM P-R Int : 170 ms QRS Dur : 102 ms QT Int : 442 ms P-R-T Axes : 053 -04 040 degrees QTc Int : 407 ms SINUS BRADYCARDIA WITH SINUS ARRHYTHMIA OTHERWISE NORMAL ECG WHEN COMPARED WITH ECG OF 31-OCT-2018 19:19, NONSPECIFIC T WAVE ABNORMALITY NOW EVIDENT IN LATERAL LEADS Confirmed by MARLYN DOMINGUEZ, CLAIR ([id number]) on 12/21/2018 10:18:55 AM Referred By: Confirmed By:CLAIR CLINE MD
--- NOTE | 2018-12-21 16:45 | PN ---
[facility] COWS - Scale Resting Pulse: 0= [place] 80 or Below Sweatin= No chills or Flushing Restless Observation: 1= Difficult to Sit Still Pupil Size: 0= Normal to Room Light Bone or Joint Aches: 2= Severe Diffuse Aches Runny Nose/ Eye Tearin= None GI Upset > 30mins: 0= None Tremor Observation of Outstretched Hands: 0= None Yawning Observation: 1= 1-2x During Session Anxiety or Irritability: 2=Irritable/Anxious Goose Flesh Skin: 0=Smooth Skin COWS Score: 6 [facility] Progress Note (SOAP) Subjective: Anxious, Body Aches. Objective: PATIENT A & O X 3, OBSERVED AMBULATING ON UNIT WITH ASSISTANCE OF A CANE. IN NO ACUTE DISTRESS. PATIENT AFEBRILE. 12/21/18 16:43 Vital Signs Temperature 97.2 F L 12/21/18 13:09 Pulse Rate 60 12/21/18 13:09 Respiratory Rate 18 12/21/18 13:09 Blood Pressure 163/85 12/21/18 13:09 O2 Sat by Pulse Oximetry (%) Laboratory Tests 12/19/18 12/19/18 12/19/18 14:55 14:55 14:55 WBC 12.0 H RBC 4.52 Hgb 14.1 Hct 42.0 MCV 92.9 MCH 31.1 MCHC 33.4 RDW 15.9 Plt Count 237 MPV 9.4 Sodium 140 Potassium 4.8 Chloride 105 Carbon Dioxide 30 Anion Gap 6 L BUN 17.6 Creatinine 1.0 Est GFR (CKD-EPI)AfAm 89.23 Est GFR (CKD-EPI)NonAf 76.99 POC Glucometer Random Glucose 106 Calcium 9.4 Total Bilirubin 0.3 AST 23 ALT 32 Alkaline Phosphatase 99 Total Protein 7.4 Albumin 3.7 RPR Titer Nonreactive HIV 1&2 Antibody Screen HIV P24 Antigen 12/19/18 12/21/18 14:55 05:43 WBC RBC Hgb Hct MCV MCH MCHC RDW Plt Count MPV Sodium Potassium Chloride Carbon Dioxide Anion Gap BUN Creatinine Est GFR (CKD-EPI)AfAm Est GFR (CKD-EPI)NonAf POC Glucometer 94 Random Glucose Calcium Total Bilirubin AST ALT Alkaline Phosphatase Total Protein Albumin RPR Titer HIV 1&2 Antibody Screen Negative HIV P24 Antigen Negative LABS NOTED. 12/21/18 16:44 Assessment: 12/21/18 16:44 WITHDRAWAL SYMPTOMS. LEUKOCYTOSIS. Plan: CONTINUE DETOX. INCREASE DAILY PO WATER INTAKE. REPEAT CBC FOR ELEVATED WBC LEVEL NOTED ON DETOX ADMISSION LABORATORY ASSESSMENT. PATIENT SCHEDULED FOR D/C TOMORROW PENDING RESULT OF REPEAT CBC.
[2018-12-21 16:54] LABS: BASO % 0.9 % (0-2.0); EOS % 2.4 % (0-4.5); HEMATOCRIT 48.3 % (35.4-49); HEMOGLOBIN 15.9 GM/dL (11.7-16.9); LYMPH % 26.3 % (8-40); MCH 31.1 pg (25.7-33.7); MEAN CELL VOLUME 94.2 fl (80-96); MONO % 8.5 % (3.8-10.2); NEUT % 61.9 % (42.8-82.8); PLATELET COUNT 258 K/MM3 (134-434); RBC 5.13 M/mm3 (4.00-5.60); RDW 16.3 % (11.9-15.9); WHITE BLOOD COUNT 12.4 K/mm3 (4.0-10.0)
[2018-12-21] MEDS: TAMSULOSIN HCL 0.4 MG CAP PO SCH (22:08)
[2018-12-21] MEDS: THIAMINE HCL 100 MG TABLET (FP) PO SCH (22:08)
[2018-12-21] MEDS: METHYL SALICYLATE/MENTHOL OINT 30 GM TUBE TP SCH (22:08)
[2018-12-21] MEDS: MELATONIN 5 MG TABLETS PO PRN (22:10)
[2018-12-22] MEDS ORDERED: LEVOTHYROXINE NA 100 MCG TABLET (FP) ONE (04:53)
[2018-12-22] MEDS ORDERED: LEVOTHYROXINE NA 25 MCG TABLET (FP) ONE (04:53)
[2018-12-22] MEDS ORDERED: METHADONE HCL 5 MG TABLET (FOR DETOX USE ONLY) PO ONE (06:00)
[2018-12-22] MEDS: LEVOTHYROXINE 50 MCG, LEVOTHYROXINE 100 MCG PO SCH (06:36)
[2018-12-22] MEDS: DOCUSATE SODIUM 100 MG CAPSULE (FP) PO SCH (06:36)
[2018-12-22 09:34] VITALS: BP 150/84; PULSE 62; TEMP 98
[2018-12-22] MEDS: PRENATAL VITAMINS W/ FOLIC ACID TABLET (FP) PO SCH (10:15)
[2018-12-22] MEDS: LISINOPRIL 20 MG TABLET (FP) PO SCH (10:15)
[2018-12-22] MEDS: MONTELUKAST NA 10 MG TABLET PO SCH (10:15)
[2018-12-22] MEDS: DULoxetine HCL 60 MG CAPSULE.DR PO SCH (10:15)
[2018-12-22] MEDS: hydrALAZINE HCL 25 MG TABLET (FP) PO SCH (10:15)
[2018-12-22] MEDS: diazePAM 5 MG TABLET PO PRN (10:16)
[2018-12-22] MEDS: METHYL SALICYLATE/MENTHOL OINT 30 GM TUBE TP SCH (10:16)
--- NOTE | 2018-12-22 14:55 | DS ---
[facility] Detox Discharge Summary Admission Date: 12/19/18 Discharge Date: 12/22/18 - History Present History: Sedative Dependence Additional Comments: 68 years old male admitted on 12/19/18 for acute opiate withdrawal sx management doing well with methadone detox regimen no complication through out the detox regimen seen by psychiatrist serge cymbalta hold xanax 1 mg po tid Pertinent Past History: patient is alert oriented x 3 speech clearly no wheezing no nausea no vomiting patient will bring in medication list and lab report to xanax provider and aftercare facility - Physical Exam Results Vital Signs: Vital Signs Temperature 98.0 F 12/22/18 09:33 Pulse Rate 62 12/22/18 09:33 Respiratory Rate 18 12/22/18 09:33 Blood Pressure 150/84 12/22/18 09:33 O2 Sat by Pulse Oximetry (%) Pertinent Admission Physical Exam Findings: opiate withdrawal sx Laboratory Last Values WBC 12.4 K/mm3 (4.0-10.0) H 12/21/18 14:15 RBC 5.13 M/mm3 (4.00-5.60) 12/21/18 14:15 Hgb 15.9 GM/dL (11.7-16.9) 12/21/18 14:15 Hct 48.3 % (35.4-49) 12/21/18 14:15 MCV 94.2 fl (80-96) 12/21/18 14:15 MCH 31.1 pg (25.7-33.7) 12/21/18 14:15 MCHC 33.0 g/dl (32.0-35.9) 12/21/18 14:15 RDW 16.3 % (11.9-15.9) H 12/21/18 14:15 Plt Count 258 K/MM3 (134-434) 12/21/18 14:15 MPV 10.0 fl (7.5-11.1) 12/21/18 14:15 Absolute Neuts (auto) 7.7 K/mm3 (1.5-8.0) 12/21/18 14:15 Neutrophils % 61.9 % (42.8-82.8) 12/21/18 14:15 Lymphocytes % 26.3 % (8-40) 12/21/18 14:15 Monocytes % 8.5 % (3.8-10.2) 12/21/18 14:15 Eosinophils % 2.4 % (0-4.5) 12/21/18 14:15 Basophils % 0.9 % (0-2.0) 12/21/18 14:15 Nucleated RBC % 0 % (0-0) 12/21/18 14:15 Sodium 140 mmol/L (136-145) 12/19/18 14:55 Potassium 4.8 mmol/L (3.5-5.1) 12/19/18 14:55 Chloride 105 mmol/L (98-107) 12/19/18 14:55 Carbon Dioxide 30 mmol/L (21-32) 12/19/18 14:55 Anion Gap 6 MMOL/L (8-16) L 12/19/18 14:55 BUN 17.6 mg/dL (7-18) 12/19/18 14:55 Creatinine 1.0 mg/dL (0.55-1.3) 12/19/18 14:55 Est GFR (CKD-EPI)AfAm 89.23 12/19/18 14:55 Est GFR (CKD-EPI)NonAf 76.99 12/19/18 14:55 POC Glucometer 111 UNITS (80-120) 12/22/18 06:35 Random Glucose 106 mg/dL (74-106) 12/19/18 14:55 Calcium 9.4 mg/dL (8.5-10.1) 12/19/18 14:55 Total Bilirubin 0.3 mg/dL (0.2-1) 12/19/18 14:55 AST 23 U/L (15-37) 12/19/18 14:55 ALT 32 U/L (13-61) 12/19/18 14:55 Alkaline Phosphatase 99 U/L (45-117) 12/19/18 14:55 Total Protein 7.4 g/dl (6.4-8.2) 12/19/18 14:55 Albumin 3.7 g/dl (3.4-5.0) 12/19/18 14:55 RPR Titer Nonreactive (NONREACTIVE) 12/19/18 14:55 HIV 1&2 Antibody Screen Negative 12/19/18 14:55 HIV P24 Antigen Negative 12/19/18 14:55 lab noted - Treatment Hospital Course: Detox Protocol Followed, Detoxed Safely, Responded well, Discharged Condition Good, Rehab Referral Accepted Patient has Accepted a Rehab Referral to: [facility] - Medication Discharge Medications: Ambulatory Orders Albuterol Sulfate Inhaler - [Ventolin HFA Inhaler -] 1 - 2 inh PO PRN 12/19/18 Alprazolam [Xanax] 1 mg PO TID 12/19/18 Duloxetine HCl [Cymbalta -] 30 mg PO DAILY 12/19/18 Duloxetine HCl [Cymbalta -] 60 mg PO DAILY 12/19/18 Hydralazine HCl 25 mg PO BID 12/19/18 Levothyroxine [Synthroid -] 150 mcg PO DAILY 12/19/18 Lisinopril [Zestril] 40 mg PO DAILY 12/19/18 Loratadine 10 mg PO DAILY 12/19/18 Losartan Potassium 100 mg PO DAILY 12/19/18 Meclizine HCl 25 mg PO DAILY 12/19/18 Montelukast Sodium [Singulair] 10 mg PO DAILY 12/19/18 Tamsulosin HCl [Flomax] 0.4 mg PO HS 12/19/18 Tizanidine HCl 4 mg PO TID 12/19/18 - Diagnosis (1) Asthma Status: Chronic Qualifiers: Asthma severity: mild Asthma persistence: intermittent Asthma complication type: with status asthmaticus Qualified Code(s): J45.22 - Mild intermittent asthma with status asthmaticus (2) BPH (benign prostatic hyperplasia) Status: Chronic Qualifiers: Lower urinary tract symptom detail: unspecified (3) Diabetes Status: Chronic Qualifiers: Diabetes mellitus type: type 2 Diabetes mellitus jail insulin use: without vermin exterminator use Diabetes mellitus complication status: without complication Qualified Code(s): E11.9 - Type 2 diabetes mellitus without complications (4) Hypertension Status: Chronic Qualifiers: Hypertension type: essential hypertension Qualified Code(s): I10 - Essential (primary) hypertension (5) Opioid dependence, uncomplicated Status: Acute (6) Type 2 diabetes mellitus Status: Chronic Qualifiers: Diabetes mellitus vermin exterminator insulin use: without jail use Diabetes mellitus complication status: without complication Qualified Code(s): E11.9 - Type 2 diabetes mellitus without complications (7) Substance induced mood disorder Status: Suspected (8) Hypothyroidism Status: Chronic Qualifiers: Hypothyroidism type: unspecified Qualified Code(s): E03.9 - Hypothyroidism , unspecified - AMA Did Patient Leave Against Medical Advice: No
== END 2018-12-22 11:30 | disposition home or self-care (01) | DRG 897 ==
LOC: YASAS 09:48 → Y3N 13:47
PROVIDERS: ADMIT Surgery; ATTEND Surgery
PROC: HZ2ZZZZ Detoxification Services for Substance Abuse Treatment (ICD-10-PCS; principal; 2018-12-19)
DX: F11.23 Opioid dependence with withdrawal (principal); J45.22 Mild intermittent asthma with status asthmaticus; F12.20 Cannabis dependence, uncomplicated; F19.24 Other psychoactive substance dependence with psychoactive substance-induced mood disorder; F31.9 Bipolar disorder, unspecified; F41.9 Anxiety disorder, unspecified; I10 Essential (primary) hypertension; N40.0 Benign prostatic hyperplasia without lower urinary tract symptoms; E11.9 Type 2 diabetes mellitus without complications; E03.9 Hypothyroidism, unspecified; D72.829 Elevated white blood cell count, unspecified; R00.1 Bradycardia, unspecified; Z85.528 Personal history of other malignant neoplasm of kidney; Z85.118 Personal history of other malignant neoplasm of bronchus and lung; Z85.028 Personal history of other malignant neoplasm of stomach; Z88.8 Allergy status to other drugs, medicaments and biological substances; Z90.5 Acquired absence of kidney
CPT/HCPCS: 36415; 71046-TC-FY; 80053; 82962; 85025; 85027; 86593; 87389; 93005; 93010; J0735

== ENCOUNTER 2021-03-22 10:41 | Inpatient (IN) | payer BC ==
[2021-03-22 11:10] VITALS: BMI 29.0
[2021-03-22] MEDS ORDERED: MAGNESIUM HYDROX 2400MG/30ML ORAL SUSPENSION 30 ML CUP PO PRN (12:09)
[2021-03-22] MEDS ORDERED: MAGNESIUM CITRATE 300 ML BOTTLE PO PRN (12:09)
[2021-03-22] MEDS ORDERED: MAG HYDROX/AL HYDROX/SIMETH 30 ML UNIT-DOSE CUP PO PRN (12:09)
[2021-03-22] MEDS ORDERED: MENTHOL/PHENOL 1 EACH UD MM PRN (12:09)
[2021-03-22] MEDS ORDERED: BISMUTH SUBSALICYLATE 524 MG/30 ML PO PRN (12:09)
[2021-03-22] MEDS ORDERED: IBUPROFEN 400 MG TABLET (FP) PO PRN (12:09)
[2021-03-22] MEDS ORDERED: METHOCARBAMOL 500 MG TABLET PO PRN (12:09)
[2021-03-22] MEDS ORDERED: ACETAMINOPHEN 325 MG TABLET (FP) PO PRN ×2 (12:09)
[2021-03-22] MEDS ORDERED: ONDANSETRON *ODT* 4 MG TABLET SL PRN (12:09)
[2021-03-22] MEDS ORDERED: methaDONE HCL 10 MG TABLET (FOR DETOX USE ONLY) PO ONE (12:17)
[2021-03-22] MEDS ORDERED: ALBUTEROL SO4 HFA INHALER IH PRN (12:21)
[2021-03-22] MEDS: prednisoLONE ACETATE 1% OPHTH SUSP 5 ML BOTTLE OU SCH ×2 (14:26→22:33)
[2021-03-22] MEDS: OFLOXACIN 0.3% OTIC SOLUTION 5 ML BOTTLE AU SCH ×2 (14:26→22:33)
[2021-03-22] MEDS: NIFEdipine E.R 60 MG TABLET PO SCH (14:26)
[2021-03-22] MEDS: hydrOXYzine PAMOATE 25 MG CAPSULE (FP) PO SCH ×3 (14:27→22:32)
[2021-03-22] MEDS: ATORVASTATIN CA 10 MG TABLET (FP) PO SCH (22:32)
[2021-03-22] MEDS: TAMSULOSIN HCL 0.4 MG CAP PO SCH (22:32)
[2021-03-22] MEDS: MONTELUKAST NA 10 MG TABLET PO SCH (22:32)
[2021-03-22] MEDS: FLUTICASONE PROP 0.05% 16 GM NASAL SPRAY NS SCH (22:34)
[2021-03-22] MEDS: MELATONIN 5 MG TABLETS PO SCH (22:35)
[2021-03-22] MEDS: THIAMINE HCL 100 MG TABLET (FP) PO SCH (22:36)
[2021-03-22] MEDS: BUDESONIDE/FORMETEROL FUMARATE 160/4.5 mcg INHALER IH SCH (22:36)
[2021-03-23] MEDS: hydrOXYzine PAMOATE 25 MG CAPSULE (FP) PO SCH ×5 (06:52→22:17)
[2021-03-23] MEDS: NIFEdipine E.R 60 MG TABLET PO SCH ×3 (06:52→22:14)
[2021-03-23] MEDS ORDERED: LEVOTHYROXINE NA 150 MCG TABLET PO SCH (10:00)
[2021-03-23] MEDS: FLUTICASONE PROP 0.05% 16 GM NASAL SPRAY NS SCH ×2 (10:36→22:15)
[2021-03-23] MEDS: OFLOXACIN 0.3% OTIC SOLUTION 5 ML BOTTLE AU SCH ×2 (10:37→22:16)
[2021-03-23] MEDS: prednisoLONE ACETATE 1% OPHTH SUSP 5 ML BOTTLE OU SCH ×2 (10:37→22:16)
[2021-03-23] MEDS: BUDESONIDE/FORMETEROL FUMARATE 160/4.5 mcg INHALER IH SCH ×2 (10:38→22:12)
[2021-03-23] MEDS: BISACODYL 5 MG TABLET.DR (FP) PO SCH (10:38)
[2021-03-23] MEDS: valACYclovir HCL 500 MG TABLET (FP) PO SCH (10:38)
[2021-03-23] MEDS: PANTOPRAZOLE 40 MG TABLET PO SCH (10:39)
[2021-03-23] MEDS: LOSARTAN POTASSIUM 50 MG TABLET PO SCH (10:39)
[2021-03-23] MEDS: PRENATAL VITAMINS W/ FOLIC ACID TABLET (FP) PO SCH (10:39)
[2021-03-23] MEDS: DULoxetine HCL 30 MG CAPSULE.DR PO SCH ×2 (11:12→22:15)
[2021-03-23] MEDS: ATORVASTATIN CA 10 MG TABLET (FP) PO SCH (22:13)
[2021-03-23] MEDS: MONTELUKAST NA 10 MG TABLET PO SCH (22:13)
[2021-03-23] MEDS: TAMSULOSIN HCL 0.4 MG CAP PO SCH (22:13)
[2021-03-23] MEDS: MELATONIN 5 MG TABLETS PO SCH (22:14)
[2021-03-23] MEDS: THIAMINE HCL 100 MG TABLET (FP) PO SCH (22:14)
[2021-03-24] MEDS: hydrOXYzine PAMOATE 25 MG CAPSULE (FP) PO SCH ×5 (05:16→22:42)
[2021-03-24] MEDS: LEVOTHYROXINE NA 25 MCG TABLET (FP) PO SCH (06:57)
[2021-03-24] MEDS ORDERED: LEVOTHYROXINE NA 125 MCG TABLET (FP) PO SCH (07:00)
[2021-03-24] MEDS ORDERED: methaDONE HCL 10 MG TABLET (FOR DETOX USE ONLY) PO ONE (10:00)
[2021-03-24] MEDS: valACYclovir HCL 500 MG TABLET (FP) PO SCH (10:30)
[2021-03-24] MEDS: PRENATAL VITAMINS W/ FOLIC ACID TABLET (FP) PO SCH (10:30)
[2021-03-24] MEDS: LOSARTAN POTASSIUM 50 MG TABLET PO SCH (10:30)
[2021-03-24] MEDS: BISACODYL 5 MG TABLET.DR (FP) PO SCH (10:30)
[2021-03-24] MEDS: DULoxetine HCL 30 MG CAPSULE.DR PO SCH ×2 (10:31→22:42)
[2021-03-24] MEDS: NIFEdipine E.R 60 MG TABLET PO SCH ×2 (10:31→22:42)
[2021-03-24] MEDS: PANTOPRAZOLE 40 MG TABLET PO SCH (10:31)
[2021-03-24] MEDS: FLUTICASONE PROP 0.05% 16 GM NASAL SPRAY NS SCH ×2 (10:34→22:42)
[2021-03-24] MEDS: BUDESONIDE/FORMETEROL FUMARATE 160/4.5 mcg INHALER IH SCH ×2 (10:34→22:42)
[2021-03-24] MEDS: prednisoLONE ACETATE 1% OPHTH SUSP 5 ML BOTTLE OU SCH ×2 (10:34→22:43)
[2021-03-24] MEDS: OFLOXACIN 0.3% OTIC SOLUTION 5 ML BOTTLE AU SCH ×2 (10:36→22:43)
[2021-03-24 13:29] LABS: HEMATOCRIT 40.5 % (35.4-49); HEMOGLOBIN 13.2 GM/dL (11.7-16.9); MCH 30.8 pg (25.7-33.7); MCHC 32.7 g/dl (32.0-35.9); MEAN CELL VOLUME 94.3 fl (80-96); MEAN PLT VOLUME 8.8 fl (7.5-11.1); PLATELET COUNT 321 10^3/uL (134-434); RBC 4.29 M/mm3 (4.00-5.60); RDW 16.2 % (11.9-15.9); WHITE BLOOD COUNT 13.1 K/mm3 (4.0-10.0)
[2021-03-24 14:03] LABS: CALCIUM 9.1 mg/dL (8.5-10.1)
[2021-03-24 14:04] LABS: ALBUMIN 3.3 g/dl (3.4-5.0); BLOOD UREA NITROGEN 9.8 mg/dL (7-18)
[2021-03-24 14:07] LABS: CREATININE 0.7 mg/dL (0.55-1.3)
[2021-03-24 14:08] LABS: BILIRUBIN,TOTAL 0.5 mg/dL (0.2-1); TOT PROT 7.1 g/dl (6.4-8.2)
[2021-03-24 14:25] LABS: HIV INTERPRETATION NEGATIVE (NEGATIVE)
[2021-03-24] MEDS ORDERED: PENICILLIN G BENZATHINE 2,400,000 UNIT/4 ML PFS IM ONE (15:26)
[2021-03-24] MEDS: clonazePAM 0.5 MG ODT TABLETS SL PRN ×2 (15:28→22:48)
[2021-03-24] MEDS: ATORVASTATIN CA 10 MG TABLET (FP) PO SCH (22:42)
[2021-03-24] MEDS: MONTELUKAST NA 10 MG TABLET PO SCH (22:42)
[2021-03-24] MEDS: TAMSULOSIN HCL 0.4 MG CAP PO SCH (22:42)
[2021-03-24] MEDS: THIAMINE HCL 100 MG TABLET (FP) PO SCH (22:42)
[2021-03-24] MEDS: MELATONIN 5 MG TABLETS PO SCH (22:42)
[2021-03-25] MEDS: LEVOTHYROXINE NA 25 MCG TABLET (FP) PO SCH (06:15)
[2021-03-25] MEDS: hydrOXYzine PAMOATE 25 MG CAPSULE (FP) PO SCH ×2 (06:15→10:22)
[2021-03-25 09:29] VITALS: BP 146/76; PULSE 85; TEMP 97.9
[2021-03-25] MEDS ORDERED: DULoxetine HCL 60 MG CAPSULE.DR PO SCH (10:00)
[2021-03-25] MEDS: BISACODYL 5 MG TABLET.DR (FP) PO SCH (10:16)
[2021-03-25] MEDS: PRENATAL VITAMINS W/ FOLIC ACID TABLET (FP) PO SCH (10:16)
[2021-03-25] MEDS: NIFEdipine E.R 60 MG TABLET PO SCH (10:16)
[2021-03-25] MEDS: PANTOPRAZOLE 40 MG TABLET PO SCH (10:16)
[2021-03-25] MEDS: LOSARTAN POTASSIUM 50 MG TABLET PO SCH (10:16)
[2021-03-25] MEDS: valACYclovir HCL 500 MG TABLET (FP) PO SCH (10:16)
[2021-03-25] MEDS: BUDESONIDE/FORMETEROL FUMARATE 160/4.5 mcg INHALER IH SCH (10:19)
[2021-03-25] MEDS: FLUTICASONE PROP 0.05% 16 GM NASAL SPRAY NS SCH (10:19)
[2021-03-25] MEDS: prednisoLONE ACETATE 1% OPHTH SUSP 5 ML BOTTLE OU SCH (10:20)
[2021-03-25] MEDS: OFLOXACIN 0.3% OTIC SOLUTION 5 ML BOTTLE AU SCH (10:21)
== END 2021-03-25 10:47 | disposition home or self-care (01) | DRG 897 ==
LOC: YASAS 10:41 → Y3N 11:19
PROVIDERS: ADMIT Allergy & Immunology; ATTEND Allergy & Immunology
PROC: HZ2ZZZZ Detoxification Services for Substance Abuse Treatment (ICD-10-PCS; principal; 2021-03-22)
DX: F11.23 Opioid dependence with withdrawal (principal); F12.20 Cannabis dependence, uncomplicated; F41.9 Anxiety disorder, unspecified; F32.A Depression, unspecified; E78.5 Hyperlipidemia, unspecified; E03.9 Hypothyroidism, unspecified; E11.9 Type 2 diabetes mellitus without complications; I10 Essential (primary) hypertension; J45.909 Unspecified asthma, uncomplicated; N40.0 Benign prostatic hyperplasia without lower urinary tract symptoms; A53.0 Latent syphilis, unspecified as early or late; Z86.19 Personal history of other infectious and parasitic diseases; Z99.89 Dependence on other enabling machines and devices; Z85.528 Personal history of other malignant neoplasm of kidney; Z88.1 Allergy status to other antibiotic agents; Z86.11 Personal history of tuberculosis
CPT/HCPCS: 36415; 71046-TC-FY; 80053; 82962; 85027; 86593; 86780; 87389; 93005; 93010; C9803; U0003; U0005